=== PATIENT | female | born 1945 | race American Indian/Alaskan Native ===

== ENCOUNTER 2017-06-08 15:18 | Emergency (ER) | payer MEDICARE ==
[2017-06-08 16:16] LABS: Basophils % (Auto) 0.5 % (0.0-1.8); Hematocrit 33.8 % (30.3-42.9); Hemoglobin 11.3 gm/dl (10.1-14.3); Mean Corpuscular HGB Conc 33 % (30-34); Mean Corpuscular Hemoglobin 33 pg (28-32); Mean Corpuscular Volume 99 fl (79-97); Platelet Count 228 K/mm3 (140-440); Red Cell Distribution Width 16.6 % (13.2-15.2)
[2017-06-08 16:34] LABS: Alanine Aminotransferase 13 units/L (7-56); Albumin/Globulin Ratio 1.1 %; Alkaline Phosphatase 62 units/L (35-129); Anion Gap 18 mmol/L; Blood Urea Nitrogen 26 mg/dL (7-17); Calcium 9.5 mg/dL (8.4-10.2); Carbon Dioxide 27 mmol/L (22-30); Chloride 97.9 mmol/L (98-107); Glucose 91 mg/dL (65-100); Potassium 5.1 mmol/L (3.6-5.0); Sodium 138 mmol/L (137-145); Total Protein 7.5 g/dL (6.3-8.2)
[2017-06-08 17:48] VITALS: BP 164/70
[2017-06-08] MEDS ORDERED: NACL 0.9% 1000 ML 1,000 ML IV ONE (18:45)
[2017-06-08 19:02] LABS: Bilirubin,Urine NEG (Negative); Blood,Urine NEG (Negative); Ketones,Urine NEG (Negative); Leukocyte Esterase,Urine MOD (Negative); Mucus,Urine FEW /HPF; Nitrite,Urine NEG (Negative); Protein,Urine <15 mg/dL mg/dL (Negative); Urobilinogen,Urine < 2.0 mg/dL (<2.0)
[2017-06-08 19:04] LABS: INR 0.92 (0.87-1.13)
--- NOTE | 2017-06-08 19:07 | Emergency Department Report ---
HPI - General Chief Complaint: Extremity Injury, Lower Time Seen by Provider: 06/08/17 18:17 - HPI HPI: This is a 72-year-old -[place] female who presents to the ED with right leg pain, swelling for 1 week. Symptoms are significantly worsened today so she came to the ER. 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 No swelling in the left leg. She has a history of high blood pressure and stated that she is compliant with her medications. ED Past Medical Hx - Past Medical History Hx of Cancer: Yes (uterine) - Surgical History Additional Surgical History: hernia, prolapsed bladder, tubaligation , cataract - Social History Smoking Status: Current Every Day Smoker Substance Use Type: None - Medications Home Medications: Home Medications Medication Instructions Recorded Confirmed Last Taken Type Apixaban [Eliquis] 5 mg PO BID #30 tablet 06/08/17 Unknown Rx Apixaban [Eliquis] 10 mg PO BID #14 tablet 06/08/17 Unknown Rx ED Review of Systems ROS: Stated complaint: SWOLLEN R LEG Other details as noted in HPI Comment: All other systems reviewed and negative Constitutional: no symptoms reported Respiratory: no symptoms reported Musculoskeletal: joint swelling Physical Exam - Physical Exam Vital Signs: Vital Signs 06/08/17 06/08/17 15:36 17:48 Temperature 98.6 F Pulse Rate 68 74 Respiratory 16 Rate Blood Pressure 150/77 Blood Pressure 164/70 [Left] O2 Sat by Pulse 100 95 Oximetry Physical Exam: Gen. alert and oriented 3 in no distress Head atraumatic normocephalic Eyes PERR LA EOMI Chest regular rate and rhythm normal S1-S2 lungs clear bilaterally Abdomen soft nondistended Back no point tenderness paravertebral tenderness Neuro no focal deficit. Psych normal mood. Extremities: Right leg swelling, mild pitting edema, no redness. Left leg without edema. ED Course Vital Signs 06/08/17 06/08/17 15:36 17:48 Temperature 98.6 F Pulse Rate 68 74 Respiratory 16 Rate Blood Pressure 150/77 Blood Pressure 164/70 [Left] O2 Sat by Pulse 100 95 Oximetry - Reevaluation(s) Reevaluation #1: 06/08/17 21:06 I spoke with patient at length regarding the CT findings. Doppler Ultrasound, showed no DVT in the extremity but could not rule out an IVC clot because of some swelling. We ordered a CT angiogram abdomen, all clot and IVC was not found but changes in the extremity vasculature are suspicious for DVT. I would recommend this patient get started on eliquis until a venogram can be obtained. The patient agreed with plan. Risks and benefits of this medication or a clinical left to the patient. ED Medical Decision Making - Lab Data Result diagrams: 06/08/17 15:49 06/08/17 15:49 Critical care attestation.: If time is entered above; I have spent that time in minutes in the direct care of this critically ill patient, excluding procedure time. ED Disposition Clinical Impression: DVT (deep venous thrombosis) Disposition: DC-01 TO HOME OR SELFCARE Is pt being admited?: No Does the pt Need Aspirin: No Condition: Stable Prescriptions: Apixaban [Eliquis] 10 mg PO BID #14 tablet Apixaban [Eliquis] 5 mg PO BID #30 tablet Referrals: PRIMARY CAREMD [Primary Care Provider] - 3-5 Days AMY GONZALEZ DO [Staff Physician] - 3-5 Days
[2017-06-08 19:10] LABS: Partial Thromboplastin Time 29.7 Sec. (24.2-36.6)
--- NOTE | 2017-06-08 20:40 | Cat Scan Report ---
FINAL REPORT PROCEDURE: CT ANGIO ABD/FEMORAL ABD AORTA TECHNIQUE: Computerized axial tomographic angiography of the chest, abdomen, pelvis and aortoiliac system with bilateral lower extremity runoff was performed after the IV injection of nonionic iodinated contrast including image processing.The image data was postprocessed using 2-dimensional multiplanar reformatted (MPR) and 3-dimensional (MIP and/or volume rendered) techniques. HISTORY: abnormal Doppler right leg, possible IVC clot COMPARISON: No prior studies are available for comparison. FINDINGS: Mild cardiomegaly is seen without pulmonary venous congestion. Mild hypoventilatory changes are seen at the lung bases. Spleen is normal in size. There may be fatty infiltration of the liver. Gallbladder and pancreas display no abnormalities. Adrenal glands and abdominal aorta are normal in size. Atherosclerotic changes are seen in the. Very minimal partially calcified plaque is seen in the origin of the celiac axis causing no stenosis. Single right renal artery is seen with an accessory left renal artery. No renal artery stenosis is suggested. No renal abnormalities are seen. There is no significant stenosis within the iliac vessels. A few tiny foci of scattered plaque are present. There is fullness of the soft tissues in the region of the vagina and anus. Malignancy is not excluded in this region but findings may be from hemorrhoids. Moderate diffuse constipation is seen. Normal appendix is seen. No evidence of bowel obstruction is seen. Images through the right lower extremity reveal tiny foci of calcified plaque in the right [employer]. These cause no significant stenosis. Minimal partially calcified plaque is seen in the mid right SFA causing a few areas of minimal stenosis. Similar findings are seen in the right popliteal artery. No stenoses are seen in the 3 vessel runoff in the lower leg. There is diffuse edema in the right lower leg, ankle and foot. Review of the venous system is limited on this study due to timing of contrast being optimized for arterial enhancement. Right popliteal vein does appears slightly larger than the left popliteal vein as does the right SFV and CFV. However, none of these veins enhances bilaterally on this exam due to the timing of imaging. There is normal enhancement of the IVC above the level of the renal arteries but it is poorly enhanced below this level likely due to timing of contrast bolus. Images through the left lower extremity reveal mild calcified plaque in the left [employer] causing no stenosis. Minimal noncalcified plaque is seen in the distal left superficial femoral artery causing no significant stenosis. Partially calcified plaque in the left popliteal artery causes approximately 30 percent stenosis. Anterior tibial artery is not well seen in its mid to distal course possibly due to timing of contrast bolus. No abnormalities are seen with the left posterior tibial or peroneal arteries. IMPRESSION: No definite areas of significant arterial stenosis are seen on the study. As exam is optimized for visualization of the arteries, there is poor evaluation of the veins on this exam. Diffuse edema is seen in the right lower extremity and right femoral and popliteal veins appear slightly larger than on the left side. This could be seen with a DVT but confirmation with ultrasound is recommended. IVC is poorly evaluated below the level of the renal veins but does not appear to be significantly distended. IVC enhances normally above the level of the renal veins, due to normal early renal vein enhancement. There is fullness of soft tissues in the region of the anus and vagina. Malignancy cannot be excluded in these areas but findings could be from hemorrhoids.
[2017-06-08] MEDS ORDERED: LOVENOX SUB-Q ONE (21:13)
--- NOTE | 2017-06-12 11:16 | Vascular Lab Report ---
Right Lower Extremity Venous Duplex Study: Reason for Exam: Edema of the right lower extremity. Comments on the Right: All veins visualized are freely compressible without evidence of internal echogenicity. Flow is spontaneous throughout. Flow shows loss of phasicity. This may suggest proximal obstruction. No evidence of acute or chronic thrombus is seen in any of the vessels visualized. Comments on the Left: A limited duplex study was done of the proximal veins of the left lower extremity. All veins visualized are freely compressible without evidence of internal echogenicity. Flow is spontaneous and phasic throughout. No evidence of acute or chronic thrombus is seen in any of the vessels visualized. Impression: Abnormal venous flow noted in the right lower extremity without identified thrombosis. This may represent proximal obstruction. Clinical correlation is recommended..
== END 2017-06-08 21:34 | disposition home or self-care (01) ==
LOC: ED 15:18
DX: I82.401 Acute embolism and thrombosis of unspecified deep veins of right lower extremity (principal)
CPT/HCPCS: 36415; 75635; 80053; 81001; 85025; 85379; 85610; 85730; 93971; 96360; 96372; 99284; J1650; J7030; Q9967